=== PATIENT | female | born 1995 | race American Indian/Alaskan Native ===

== ENCOUNTER 2017-03-29 15:51 | Emergency (ER) | payer SELFPAY ==
[2017-03-29 17:30] LABS: Bilirubin,Urine NEG (Negative); Blood,Urine NEG (Negative); Ketones,Urine TR mg/dL (Negative); Leukocyte Esterase,Urine SM (Negative); Mucus,Urine 3+ /HPF; Nitrite,Urine NEG (Negative)
--- NOTE | 2017-03-29 18:09 | Emergency Department Report ---
ED Abdominal Pain HPI - General Chief Complaint: Abdominal Pain Stated Complaint: ABD PAIN Time Seen by Provider: 03/29/17 17:26 Source: patient, family Mode of arrival: Ambulatory Limitations: No Limitations - History of Present Illness Initial Comments: The patient here reported and abdominal pain lower abdomen and vaginal pain 2 weeks. She reports that she has white vaginal discharge. Denies any odor. Denies any urinary burning in frequency or urgency. Denies any back pain. Denies any nausea or vomiting. Pain is located pelvic area and she said it's cramping and 3/10 and it comes and goes. She also reports that she had a positive test and wants to know if she is . Denies any vaginal bleeding. Patient has no medical problems. She says she is not concerned about STDs. She states she had her last menstrual cycle 02/24/2017 and it only came forward to light. Complaint: abdominal pain Onset/Timin -: week(s) Location: LLQ (pelvic area) Radiation: none Migration to: no migration Severity: mild Severity scale (0 -10): 3 Quality: cramping Consistency: intermittent Improves With: nothing Worsens With: nothing Context: other (patient says she is possibly ) Associated Symptoms: other (vaginal discharge). denies: denies other symptoms, nausea, vomiting, diarrhea, fever, chills, constipation, dysuria, hematemesis, hematochezia, melena, hematuria, anorexia, syncope Treatments Prior to Arrival: other (none) - Related Data LMP Date: 02/24/17 (2 days) Previous Rx's Medication Instructions Recorded Last Taken Type Nitrofurantoin [place]/M-Cryst 100 mg PO Q12HR #14 capsule 03/29/17 Unknown Rx [Macrobid CAP] Vit-Fe Fumar-FA [ 1 tab PO QDAY #30 tablet 03/29/17 Unknown Rx Vitamin] Allergies Allergy/AdvReac Type Severity Reaction Status Date / Time No Known Allergies Allergy Unverified 03/29/17 16:02 ED Review of Systems ROS: Stated complaint: ABD PAIN Other details as noted in HPI Comment: All other systems reviewed and negative Constitutional: denies: chills, fever Respiratory: no symptoms reported Cardiovascular: denies: chest pain, palpitations, edema, syncope Gastrointestinal: abdominal pain. denies: nausea, vomiting, diarrhea, hematemesis, melena, hematochezia Genitourinary: discharge, abnormal menses, dyspareunia, other (possible ). denies: urgency, dysuria, frequency, hematuria Musculoskeletal: denies: back pain, joint swelling, arthralgia, myalgia Skin: denies: rash Neurological: denies: headache, weakness, numbness, paresthesias, confusion, abnormal gait, vertigo ED Past Medical Hx - Past Medical History Previous Medical History?: No - Surgical History Past Surgical History?: No - Family History Family history: no significant - Social History Smoking Status: Never Smoker Substance Use Type: None - Medications Home Medications: Home Medications Medication Instructions Recorded Confirmed Last Taken Type Nitrofurantoin [place]/M-Cryst 100 mg PO Q12HR #14 capsule 03/29/17 Unknown Rx [Macrobid CAP] Vit-Fe Fumar-FA [ 1 tab PO QDAY #30 tablet 03/29/17 Unknown Rx Vitamin] ED Physical Exam - General Limitations: No Limitations General appearance: alert, in no apparent distress - Head Head exam: Present: atraumatic, normocephalic, normal inspection - Eye Eye exam: Present: normal appearance, PERRL, EOMI. Absent: scleral icterus, conjunctival injection Pupils: Present: normal accommodation - ENT ENT exam: Present: normal exam, normal orophraynx, mucous membranes moist, TM's normal bilaterally, normal external ear exam - Neck Neck exam: Present: normal inspection, full ROM. Absent: tenderness, meningismus, lymphadenopathy - Respiratory Respiratory exam: Present: normal lung sounds bilaterally. Absent: respiratory distress, chest wall tenderness - Cardiovascular Cardiovascular Exam: Present: regular rate, normal rhythm, normal heart sounds - GI/Abdominal GI/Abdominal exam: Present: soft, normal bowel sounds. Absent: distended, tenderness, guarding, rebound, rigid, organomegaly, mass, bruit, pulsatile mass , hernia - External exam: Present: normal external exam. Absent: erythema, swelling, lesions, lacerations, ecchymosis, bleeding Speculum exam: Present: vaginal discharge, cervical discharge. Absent: erythema , vaginal bleeding, foreign body, tissue, laceration Bi-manual exam: Present: normal bi-manual exam. Absent: cervical motion tendernes, adnexal tenderness, adnexal mass, uterine enlargement, uterine tenderness - Expanded Exam Expanded Female exam: Absent: vaginal laceration, tissue present in vagina, herpetic lesions, vulvar erythema, vulvar tenderness, foreign body External exam: Present: normal Amniotic fluid: Present: none Speculum exam: Present: cervical OS closed, vaginal discharge. Absent: vaginal bleeding - Extremities Exam Extremities exam: Present: normal inspection, full ROM, normal capillary refill. Absent: tenderness, pedal edema, joint swelling, calf tenderness - Back Exam Back exam: Present: normal inspection, full ROM. Absent: tenderness, CVA tenderness (R), CVA tenderness (L), muscle spasm, paraspinal tenderness, vertebral tenderness - Neurological Exam Neurological exam: Present: alert, oriented X3, normal gait, reflexes normal. Absent: motor sensory deficit - Psychiatric Psychiatric exam: Present: normal affect, normal mood - Skin Skin exam: Present: warm, dry, intact, normal color. Absent: rash ED Course Vital Signs 03/29/17 15:57 Temperature 98.2 F Pulse Rate 86 Respiratory 14 Rate Blood Pressure 110/71 O2 Sat by Pulse 100 Oximetry - Reevaluation(s) Reevaluation #1: 03/29/17 20:45 Patient throughout ED stay. She is able to tolerate oral liquids in the emergency room without any difficulty. ED Medical Decision Making - Lab Data Result diagrams: 03/29/17 18:17 03/29/17 18:17 Lab Results 03/29/17 03/29/17 03/29/17 Range/Units 16:33 16:33 18:17 WBC 7.8 (4.5-11.0) K/mm3 RBC 4.05 (3.65-5.03) M/mm3 Hgb 11.6 (10.1-14.3) gm/dl Hct 35.6 (30.3-42.9) % MCV 88 (79-97) fl MCH 29 (28-32) pg MCHC 33 (30-34) % RDW 14.5 (13.2-15.2) % Plt Count 214 (140-440) K/mm3 Lymph % (Auto) 21.1 (13.4-35.0) % Mason % (Auto) 6.5 (0.0-7.3) % Eos % (Auto) 1.3 (0.0-4.3) % Baso % (Auto) 0.5 (0.0-1.8) % Lymph # 1.7 (1.2-5.4) K/mm3 Mason # 0.5 (0.0-0.8) K/mm3 Eos # 0.1 (0.0-0.4) K/mm3 Baso # 0.0 (0.0-0.1) K/mm3 Seg Neutrophils % 70.6 H (40.0-70.0) % Seg Neutrophils # 5.5 (1.8-7.7) K/mm3 Sodium (137-145) mmol/L Potassium (3.6-5.0) mmol/L Chloride (98-107) mmol/L Carbon Dioxide (22-30) mmol/L Anion Gap mmol/L BUN (7-17) mg/dL Creatinine (0.7-1.2) mg/dL Estimated GFR ml/min BUN/Creatinine Ratio % Glucose (65-100) mg/dL Calcium (8.4-10.2) mg/dL Total Bilirubin (0.1-1.2) mg/dL AST (5-40) units/L ALT (7-56) units/L Alkaline Phosphatase (35-129) units/L Total Protein (6.3-8.2) g/dL Albumin (3.9-5) g/dL Albumin/Globulin Ratio % Lipase (13-60) units/L HCG, Quant (0-4) mIU/mL Urine Color Yellow (Yellow) Urine Turbidity Clear (Clear) Urine pH 5.0 (5.0-7.0) Ur Specific [place] 1.028 (1.003-1.030) Urine Protein 30 mg/dl (Negative) mg/dL Urine Glucose (UA) Neg (Negative) mg/dL Urine Ketones Tr (Negative) mg/dL Urine Blood Neg (Negative) Urine Nitrite Neg (Negative) Urine Bilirubin Neg (Negative) Urine Urobilinogen 4.0 (<2.0) mg/dL Ur Leukocyte Esterase Sm (Negative) Urine WBC (Auto) 17.0 H (0.0-6.0) /HPF Urine RBC (Auto) 5.0 (0.0-6.0) /HPF U Epithel Cells (Auto) 5.0 (0-13.0) /HPF Urine Mucus 3+ /HPF Urine HCG, Qual Positive A (Negative) 03/29/17 03/29/17 Range/Units 18:17 18:17 WBC (4.5-11.0) K/mm3 RBC (3.65-5.03) M/mm3 Hgb (10.1-14.3) gm/dl Hct (30.3-42.9) % MCV (79-97) fl MCH (28-32) pg MCHC (30-34) % RDW (13.2-15.2) % Plt Count (140-440) K/mm3 Lymph % (Auto) (13.4-35.0) % Mason % (Auto) (0.0-7.3) % Eos % (Auto) (0.0-4.3) % Baso % (Auto) (0.0-1.8) % Lymph # (1.2-5.4) K/mm3 Mason # (0.0-0.8) K/mm3 Eos # (0.0-0.4) K/mm3 Baso # (0.0-0.1) K/mm3 Seg Neutrophils % (40.0-70.0) % Seg Neutrophils # (1.8-7.7) K/mm3 Sodium 139 (137-145) mmol/L Potassium 3.8 (3.6-5.0) mmol/L Chloride 102.7 (98-107) mmol/L Carbon Dioxide 23 (22-30) mmol/L Anion Gap 17 mmol/L BUN 9 (7-17) mg/dL Creatinine 0.7 (0.7-1.2) mg/dL Estimated GFR > 60 ml/min BUN/Creatinine Ratio 12.85 % Glucose 85 (65-100) mg/dL Calcium 8.8 (8.4-10.2) mg/dL Total Bilirubin 0.60 (0.1-1.2) mg/dL AST 16 (5-40) units/L ALT 15 (7-56) units/L Alkaline Phosphatase 53 (35-129) units/L Total Protein 7.0 (6.3-8.2) g/dL Albumin 4.0 (3.9-5) g/dL Albumin/Globulin Ratio 1.3 % Lipase 36 (13-60) units/L HCG, Quant 458.2 H (0-4) mIU/mL Urine Color (Yellow) Urine Turbidity (Clear) Urine pH (5.0-7.0) Ur Specific [place] (1.003-1.030) Urine Protein (Negative) mg/dL Urine Glucose (UA) (Negative) mg/dL Urine Ketones (Negative) mg/dL Urine Blood (Negative) Urine Nitrite (Negative) Urine Bilirubin (Negative) Urine Urobilinogen (<2.0) mg/dL Ur Leukocyte Esterase (Negative) Urine WBC (Auto) (0.0-6.0) /HPF Urine RBC (Auto) (0.0-6.0) /HPF U Epithel Cells (Auto) (0-13.0) /HPF Urine Mucus /HPF Urine HCG, Qual (Negative) Wet Prep revealed no trichomonads, no cells or no. CHL pending Urine culture pending - Radiology Data Radiology results: report reviewed Ultrasound shows no intrauterine gestation identified. Could affect her gestation. Patient quantitative hCG is 458 weeks ago approximately 3 weeks gestation. Occult ectopic cannot be excluded. Continue follow-up recommended. 1.8 cm ovarian cyst on the right and left ovaries normal. No ovarian mass noted. - Medical Decision Making ED course: She is here complaining of lower abdominal cramping on and off for 2 weeks. That she had a positive home test and wants to find out if she is . Also complaining of right vaginal discharge without any odor. Lab work drawn and within normal limits except urinalysis shows increased white blood cell and positive, small amount of protein and trace ketone. Patient tolerating oral liquids in the emergency room without any difficulties. Her ultrasound did not show any intrauterine gestation and her quantitative hCG at 458.2. It is recommended the patient needs to follow up because ectopic cannot be excluded. Patient in therefore unable to see anything on ultrasound. I discussed all results with patient and informed her that she will need to follow-up in the emergency room in 48 hours for repeat hormone test. I explained to her the reason why and she voiced understanding. I also explained to her that she had a small amount of protein in her urine and she said any follow-up to repeat her urinalysis as she is and this could be a problem. She had also a trace ketone which show she is mildly dehydrated and she was able to tolerate oral fluids in the emergency room without any difficulties. Patient with threatened miscarriage, pelvic pain, ketonuria, proteinuria and urinary tract infection. I discussed with patient that she needs to schedule appointment with outpatient RESPIRATORY CARE TECHNICIAN for follow-up care and start taking vitamins. Discussed with her that she can go to [facility] has OB service and she can play on a sliding scale based on her income. Critical care attestation.: If time is entered above; I have spent that time in minutes in the direct care of this critically ill patient, excluding procedure time. ED Disposition Clinical Impression: Threatened miscarriage in early , Ovarian cyst, left, Dehydration, mild, Acute cystitis during in first trimester Abdominal pain during Qualifiers: Trimester: first trimester Qualified Code(s): O26.891 - Other specified related conditions, first trimester; R10.9 - Unspecified abdominal pain Protein in urine Qualifiers: Proteinuria type: gestational Trimester: first trimester Qualified Code(s): O12.11 - Gestational proteinuria, first trimester Vaginal discharge during Qualifiers: Trimester: first trimester Qualified Code(s): O26.891 - Other specified related conditions, first trimester; N89.8 - Other specified noninflammatory disorders of vagina Disposition: DC-01 TO HOME OR SELFCARE Is pt being admited?: No Does the pt Need Aspirin: No Condition: Stable Instructions: Abdominal Pain (ED), Abdominal Pain in (ED), Threatened Miscarriage (ED), Dehydration (ED), (ED), Urinary Tract Infection in Women (ED) Additional Instructions: Please increase her fluid intake to 2 -3 liters of fluid /day as your urine shows mild dehydration Take antibiotic as prescribed Follow up with [facility] as instructed Please return to the emergency room in 48 hours for repeat hormone test He says that you have some protein in urine and you will need to be monitored. Prescriptions: Nitrofurantoin [place]/M-Cryst [Macrobid CAP] 100 mg PO Q12HR #14 capsule Vit-Fe Fumar-FA [ Vitamin] 1 tab PO QDAY #30 tablet Referrals: [facility] [Outside] - 3-5 Days PILO DAHL MD [Staff Physician] - 3-5 Days RETURN TO, ER [Other] - 03/31/17 (Repeat hormone tests.) Forms: Work/School Release Form(ED), Accompanied Note
[2017-03-29 18:33] LABS: Basophils % (Auto) 0.5 % (0.0-1.8); Eosinophils % (Auto) 1.3 % (0.0-4.3); Hematocrit 35.6 % (30.3-42.9); Hemoglobin 11.6 gm/dl (10.1-14.3); Mean Corpuscular HGB Conc 33 % (30-34); Mean Corpuscular Hemoglobin 29 pg (28-32); Mean Corpuscular Volume 88 fl (79-97); Platelet Count 214 K/mm3 (140-440); Red Blood Count 4.05 M/mm3 (3.65-5.03); Red Cell Distribution Width 14.5 % (13.2-15.2); White Blood Count 7.8 K/mm3 (4.5-11.0)
[2017-03-29 18:50] LABS: Alanine Aminotransferase 15 units/L (7-56); Albumin/Globulin Ratio 1.3 %; Alkaline Phosphatase 53 units/L (35-129); BUN/Creatinine Ratio 12.85; Blood Urea Nitrogen 9 mg/dL (7-17); Calcium 8.8 mg/dL (8.4-10.2); Carbon Dioxide 23 mmol/L (22-30); Glucose 85 mg/dL (65-100); Lipase 36 units/L (13-60)
[2017-03-29 19:01] LABS: Anion Gap 17 mmol/L; Chloride 102.7 mmol/L (98-107); Potassium 3.8 mmol/L (3.6-5.0); Sodium 139 mmol/L (137-145)
--- NOTE | 2017-03-29 19:30 | Ultrasound Report ---
FINAL REPORT EXAM: US OB TRANSVAGINAL HISTORY: pelvic pain in TECHNIQUE: Ultrasound obstetrical transvaginal and transabdominal with color Doppler evaluation PRIORS: None. FINDINGS: Uterus is 8.2 x 4.6 x 4.6 centimeters. Endometrial stripe is 1.8 centimeters. No evidence for gestational sac or products of conception seen within the uterus right ovary is 3.3 x 2.6 x 2.6 centimeters. A 1.8 centimeter cyst is noted left ovary is 2.6 x 1.8 x 1.3 centimeters. No abnormal mass or cyst identified. No abnormal adnexal mass seen. IMPRESSION: No intrauterine gestation identified. Could reflect very early gestation. Occult ectopic cannot be excluded. Continued followup recommended
--- NOTE | 2017-03-29 19:34 | Ultrasound Report ---
FINAL REPORT EXAM: US OB \T\lt; = 14 WEEKS FETUS HISTORY: pelvic pain in TECHNIQUE: Ultrasound obstetrical transabdominal PRIORS: None. FINDINGS: The uterus measures 8.2 x 4.6 x 4.6 centimeters. No intrauterine gestational gestational sac identified The ovaries are normal in size and echogenicity. A 1.8 centimeter right ovarian cyst is noted. No adnexal mass seen. IMPRESSION: No intrauterine gestation identified. Continued followup recommended.
[2017-03-29 21:25] VITALS: BP 111/75
== END 2017-03-29 21:28 | disposition home or self-care (01) ==
LOC: ED 15:51
DX: O20.0 Threatened abortion (principal); O23.11 Infections of bladder in pregnancy, first trimester; O34.81 Maternal care for other abnormalities of pelvic organs, first trimester; N83.201 Unspecified ovarian cyst, right side; Z3A.01 Less than 8 weeks gestation of pregnancy
CPT/HCPCS: 36415; 76801; 76817; 80053; 81001; 81025; 83690; 84702; 85025; 87086; 87210; 87591; 99284

== ENCOUNTER 2017-03-31 10:28 | Emergency (ER) | payer SELFPAY ==
[2017-03-31 11:15] VITALS: BP 118/70
--- NOTE | 2017-03-31 11:15 | Emergency Department Report ---
Chief Complaint: Recheck/Abnormal Lab/Rx Stated Complaint: FOLLOW UP Time Seen by Provider: 03/31/17 11:12 - HPI History of Present Illness: PT states she was seen 2 days ago and she had + test. PT states she was told to come back to the ED today for repeat lab work. - ROS Review of Systems: - bleeding - dysuria + intermittent abd cramps - Exam Physical Exam: abd soft and non tender MSE screening note: Focused history and physical exam performed. Due to findings the following was ordered: lab ED Disposition for MSE Condition: Stable
--- NOTE | 2017-03-31 12:51 | Emergency Department Report ---
Entered by KINJAL SWANSON, acting as scribe for SANDEEP RIVERA PA. ED Female HPI - General Chief complaint: Urogenital-Female Stated complaint: FOLLOW UP Time Seen by Provider: 03/31/17 11:12 Source: patient Mode of arrival: Ambulatory Limitations: No Limitations - History of Present Illness Initial comments: 21 y/o female presents due to follow up from 2 days ago wanting blood work to check status. She is asymptomatic and reports that US was done 2 days ago and came back unremarkable. She was told to follow up today. LMP 02/26/17. Complaint: other (pt wants blood work) -: days(s) (2) Radiation: non-radiating Severity: mild Severity scale (0 -10): 3 Quality: cramping Consistency: constant Improves with: none Worsens with: none Are you Now?: Yes ( ) Last Menstrual Period: 02/26/18 EDC: 12/03/18 Associated Symptoms: denies other symptoms - Related Data Sexually active: Yes Previous Rx's Medication Instructions Recorded Last Taken Type Nitrofurantoin [place]/M-Cryst 100 mg PO Q12HR #14 capsule 03/29/17 Unknown Rx [Macrobid CAP] Vit-Fe Fumar-FA [ 1 tab PO QDAY #30 tablet 03/29/17 Unknown Rx Vitamin] Allergies Allergy/AdvReac Type Severity Reaction Status Date / Time No Known Allergies Allergy Unverified 03/29/17 16:02 ED Review of Systems Comment: All other systems reviewed and negative Constitutional: denies: chills, fever Respiratory: denies: cough, shortness of breath Cardiovascular: denies: chest pain Gastrointestinal: denies: abdominal pain, nausea, vomiting Neurological: denies: headache, weakness, numbness ED Past Medical Hx - Past Medical History Previous Medical History?: No - Surgical History Past Surgical History?: No - Social History Smoking Status: Never Smoker Substance Use Type: None - Medications Home Medications: Home Medications Medication Instructions Recorded Confirmed Last Taken Type Nitrofurantoin [place]/M-Cryst 100 mg PO Q12HR #14 capsule 03/29/17 Unknown Rx [Macrobid CAP] Vit-Fe Fumar-FA [ 1 tab PO QDAY #30 tablet 03/29/17 Unknown Rx Vitamin] ED Physical Exam - General Limitations: No Limitations - Other Other exam information: GENERAL: Patient is alert and oriented x 3. No apparent distress, normal gait, atraumatic. HEAD: Head is normocephalic and atraumatic. LUNGS: Symmetrical with respiration, no wheezing, no rales, no crackles, CTAB HEART: Regular rate and rhythm with normal S1/S2 present. No murmurs, rubs, or gallops. ABDOMEN: Soft, nondistended. Nontender to palpation on all quadrants. No organomegaly was noted. Positive bowel sounds. No CVA tenderness. SKIN: Warm and dry. No lesions, ulceration or induration present. ED Course Vital Signs 03/31/17 11:12 Temperature 98.4 F Pulse Rate 77 Respiratory 18 Rate Blood Pressure 118/70 O2 Sat by Pulse 100 Oximetry ED Medical Decision Making - Medical Decision Making 21 y/o female presents with follow up for HcG levels ED course: HCG levels collected today. HCG level is 1700+ Tucker quant level as trip in the past 2 days. this is consistent with iup Discussed findings with patient. Discussed the patient to follow up with OB as referred. Discussed continued daily needle vitamins. Vital signs stable patient is in no acute or respiratory distress. Discussed findings with patient about diagnoses. Discussed treatment in ED with patient Discussed with patient to follow up with PCP as referred, and to return to the ED if symptoms return or worsen. Patient states understanding and will follow instructions. Pt verbally states understanding and will comply to follow up. ED Disposition Clinical Impression: Qualifiers: Weeks of gestation: less than 8 weeks Qualified Code(s): Z3A.01 - Less than 8 weeks gestation of Disposition: DC-01 TO HOME OR SELFCARE Is pt being admited?: No Does the pt Need Aspirin: No Condition: Stable Instructions: Morning Sickness (ED), (ED) Additional Instructions: Continue taking vitamins as discussed. Follow-up with OB doctor. If any new symptoms return to ED Referrals: PRIMARY CARE, [Primary Care Provider] - 3-5 Days ELGIN BOGGS MD [Staff Physician] - 3-5 Days MARTINE BOGGS MD [Referring] - 3-5 Days STAN BOGGS MD [Staff Physician] - 3-5 Days ALEX BOGGS MD [Referring] - 3-5 Days Forms: Work/School Release Form(ED) Time of Disposition: 12:58 This documentation as recorded by the SKY ku RYAN,accurately reflects the service I personally performed and the decisions made by ,SANDEEP RIVERA PA.
== END 2017-03-31 13:16 | disposition home or self-care (01) ==
LOC: ED 10:28
DX: Z32.01 Encounter for pregnancy test, result positive (principal); Z3A.01 Less than 8 weeks gestation of pregnancy
CPT/HCPCS: 36415; 84702; 86900; 86901; 99283

== ENCOUNTER 2017-04-11 05:25 | Emergency (ER) | payer MEDICAID ==
[2017-04-11 05:48] VITALS: BP 108/61
[2017-04-11] MEDS ORDERED: TYLENOL PO ONE (05:55)
[2017-04-11 06:29] LABS: Bilirubin,Urine NEG (Negative); Blood,Urine NEG (Negative); Ketones,Urine NEG (Negative); Leukocyte Esterase,Urine MOD (Negative); Mucus,Urine FEW /HPF; Nitrite,Urine NEG (Negative); Protein,Urine <15 mg/dL mg/dL (Negative); Urobilinogen,Urine < 2.0 mg/dL (<2.0)
[2017-04-11 08:05] LABS: Basophils % (Auto) 0.4 % (0.0-1.8); Eosinophils % (Auto) 1.2 % (0.0-4.3); Hematocrit 37.4 % (30.3-42.9); Hemoglobin 12.2 gm/dl (10.1-14.3); Mean Corpuscular HGB Conc 33 % (30-34); Mean Corpuscular Hemoglobin 29 pg (28-32); Mean Corpuscular Volume 89 fl (79-97); Platelet Count 210 K/mm3 (140-440); Red Blood Count 4.22 M/mm3 (3.65-5.03); Red Cell Distribution Width 15.2 % (13.2-15.2); White Blood Count 10.1 K/mm3 (4.5-11.0)
--- NOTE | 2017-04-11 08:49 | Ultrasound Report ---
FINAL REPORT PROCEDURE: US OB \T\lt; = 14 WEEKS FETUS TECHNIQUE: Real-time transabdominal sonography of the uterus, placenta, amniotic fluid, adnexa, and fetus was performed with image documentation. Measurements were obtained to determine age/size. M-mode Doppler was used to document heartbeat. CPT 45293 HISTORY: ABDOMINAL PAIN COMPARISON: 03/29/2017 FINDINGS: CRL: 3 mm, which corresponds to a gestational age of: 5 weeks, 6 days. Yolk Sac: Present Embryonic Cardiac Activity: Heart rate 99 beats per minute Gestational Sac: Normal. Amniotic fluid: Normal. Cervix: Normal. Right Ovary: 4.5 x 2.7 centimeters with normal flow. Complex mass lesion right adnexa measure 1.8 by 1.8 centimeters with central cystic structure and with capsular thickening in the 4-5 millimeter range. There is prominent peripheral color Doppler flow. With possible ring of fire appearance. This could reflect a concomitant ectopic and is the diagnosis of exclusion and warrants close followup. More solid appearing ovoid lesion in the right adnexa also seen measuring 1.3 x 1.2 centimeters Left Ovary: 3.1 x 1.8 centimeters with normal flow Estimated delivery date: 12/06/2017 Uterus and adnexa: Uterus 9.5 centimeters Other: Minimal free fluid. IMPRESSION: Single live intrauterine gestation at approximately 5 weeks 6 day. EDC by US 12/06/2017. Minimal free fluid. Indeterminate complex cystic mass right ovary indeterminate to exclude concomitant ectopic . Close followup is advised.
--- NOTE | 2017-04-11 08:51 | Ultrasound Report ---
FINAL REPORT PROCEDURE: US OB TRANSVAGINAL TECHNIQUE: Real-time transvaginal sonography of the uterus, placenta, amniotic fluid, adnexa, and fetus was performed with image documentation. Measurements were obtained to determine age/size. M-mode Doppler was used to document heartbeat. CPT 13848 HISTORY: ABDOMINAL PAIN COMPARISON: 03/29/2017 FINDINGS: CRL: 3mm, which corresponds to a gestational age of: 5weeks, 6 days. Yolk Sac: Normal. Embryonic Cardiac Activity: 9 beats per minute Gestational Sac: Normal. Right Ovary: 4.5 x 2.7 centimeters with normal flow. There is a solid ovoid mass in the right ovary measures 1.3 centimeters and appears benign and nonspecific. There is a complex cystic mass measuring 1.8 x 1.8 centimeters with prominent peripheral color Doppler flow with ring of fire appearance. This may represent concomitant ectopic or corpus luteum cyst of . Concomitant ectopic is the diagnosis of exclusion and close followup and further workup is advised. Left Ovary: 3.1 x 1.8 centimeters with normal flow Estimated delivery date: 12/06/2017 Comment: Close followup advised Minimal free fluid IMPRESSION: 1. Single living intrauterine gestation at approximately 5 weeks 6 days 2. EDC by US 12/06/2017 3 minimal free fluid. Indeterminate complex cystic mass right adnexa. Followup is advised. Details above..
--- NOTE | 2017-04-11 10:53 | Emergency Department Report ---
ED Abdominal Pain HPI - General Chief Complaint: Abdominal Pain Stated Complaint: ABD PAIN Time Seen by Provider: 04/11/17 10:33 Source: patient Mode of arrival: Ambulatory Limitations: No Limitations - History of Present Illness Initial Comments: Patient is a 21-year-old female here with complaint of lower abdominal pain that started last evening. Her last menstrual period was February 24. She knows that she is . She has a OB appointment scheduled on the . Her pain is currently resolved in the emergency department. She describes it as an ache. It does not radiate. No fevers, chills, no vaginal bleeding or vaginal discharge. MD Complaint: abdominal pain -: Gradual, During the night Location: diffuse Radiation: none Migration to: no migration Severity: mild Severity scale (0 -10): 8 Quality: aching Improves With: other Worsens With: nothing Associated Symptoms: denies other symptoms - Related Data LMP Date: 02/24/17 Previous Rx's Medication Instructions Recorded Last Taken Type Nitrofurantoin [place]/M-Cryst 100 mg PO Q12HR #14 capsule 03/29/17 Unknown Rx [Macrobid CAP] Vit-Fe Fumar-FA [ 1 tab PO QDAY #30 tablet 03/29/17 Unknown Rx Vitamin] Allergies Allergy/AdvReac Type Severity Reaction Status Date / Time No Known Allergies Allergy Unverified 03/29/17 16:02 ED Review of Systems ROS: Stated complaint: ABD PAIN Other details as noted in HPI Constitutional: denies: chills, fever Eyes: denies: eye pain, eye discharge, vision change ENT: denies: ear pain, throat pain Respiratory: denies: cough, shortness of breath, wheezing Cardiovascular: denies: chest pain, palpitations Endocrine: no symptoms reported Gastrointestinal: denies: abdominal pain, nausea, diarrhea Genitourinary: denies: urgency, dysuria, discharge Musculoskeletal: denies: back pain, joint swelling, arthralgia Skin: denies: rash, lesions Neurological: denies: headache, weakness, paresthesias Psychiatric: denies: anxiety, depression Hematological/Lymphatic: denies: easy bleeding, easy bruising ED Past Medical Hx - Past Medical History Previous Medical History?: No - Surgical History Past Surgical History?: No - Social History Smoking Status: Never Smoker Substance Use Type: None - Medications Home Medications: Home Medications Medication Instructions Recorded Confirmed Last Taken Type Nitrofurantoin [place]/M-Cryst 100 mg PO Q12HR #14 capsule 03/29/17 Unknown Rx [Macrobid CAP] Vit-Fe Fumar-FA [ 1 tab PO QDAY #30 tablet 03/29/17 Unknown Rx Vitamin] ED Physical Exam - General Limitations: No Limitations General appearance: alert, in no apparent distress - Head Head exam: Present: atraumatic, normocephalic - Eye Eye exam: Present: normal appearance - ENT ENT exam: Present: mucous membranes moist - Neck Neck exam: Present: normal inspection - Respiratory Respiratory exam: Present: normal lung sounds bilaterally. Absent: respiratory distress - Cardiovascular Cardiovascular Exam: Present: regular rate, normal rhythm. Absent: systolic murmur, diastolic murmur, rubs, gallop - GI/Abdominal GI/Abdominal exam: Present: soft, normal bowel sounds - Extremities Exam Extremities exam: Present: normal inspection - Back Exam Back exam: Present: normal inspection - Neurological Exam Neurological exam: Present: alert, oriented X3 - Psychiatric Psychiatric exam: Present: normal affect, normal mood - Skin Skin exam: Present: warm, dry, intact, normal color. Absent: rash ED Course Vital Signs 04/11/17 05:42 Temperature 98.1 F Pulse Rate 83 Respiratory 12 Rate Blood Pressure 108/61 Blood Pressure 108/61 [Left] O2 Sat by Pulse 100 Oximetry ED Medical Decision Making - Lab Data Result diagrams: 04/11/17 07:36 Laboratory Results - last 24 hr 04/11/17 04/11/17 04/11/17 05:54 07:36 07:36 WBC 10.1 RBC 4.22 Hgb 12.2 Hct 37.4 MCV 89 MCH 29 MCHC 33 RDW 15.2 Plt Count 210 Lymph % (Auto) 13.7 Carroll % (Auto) 6.0 Eos % (Auto) 1.2 Baso % (Auto) 0.4 Lymph # 1.4 Carroll # 0.6 Eos # 0.1 Baso # 0.0 Seg Neutrophils % 78.7 H Seg Neutrophils # 8.0 H HCG, Quant 33352 H Urine Color Yellow Urine Turbidity Slightly-cloudy Urine pH 7.0 Ur Specific Tamiment 1.015 Urine Protein <15 mg/dl Urine Glucose (UA) Neg Urine Ketones Neg Urine Blood Neg Urine Nitrite Neg Urine Bilirubin Neg Urine Urobilinogen < 2.0 Ur Leukocyte Esterase Mod Urine WBC (Auto) 9.0 H Urine RBC (Auto) 2.0 U Epithel Cells (Auto) 12.0 Urine Mucus Few - Medical Decision Making Patient is a 21-year-old female who presents with complaint of lower abdominal pain 1 day. This pain is currently resolved. She has a beta hCG of 57,000 and an ultrasound that shows an IUP at approximately 5 weeks 6 days. In addition to this she also has a questionable cyst versus ectopic at her left ovary. She is supposed to follow-up with OB on the . Discussed case with Dr. Irby from OB agrees with plan to repeat ultrasound in 48 hours. Patient will need to follow up in the ER given that [facility] office is closed on Thursday. Strict precautions given for ectopic . Critical care attestation.: If time is entered above; I have spent that time in minutes in the direct care of this critically ill patient, excluding procedure time. ED Disposition Clinical Impression: Abdominal pain affecting Disposition: DC-01 TO HOME OR SELFCARE Is pt being admited?: No Does the pt Need Aspirin: No Condition: Stable Instructions: Abdominal Pain (ED), Ectopic (ED) Additional Instructions: Please return to the emergency department in 48 hours for repeat ultrasound and blood work Referrals: PRIMARY MD COLUMBA [Primary Care Provider] - 3-5 Days ISABEL IRBY MD [Staff Physician] - 2-3 Days Time of Disposition: 11:29
== END 2017-04-11 11:45 | disposition home or self-care (01) ==
LOC: ED 05:25
DX: O26.891 Other specified pregnancy related conditions, first trimester (principal); R10.30 Lower abdominal pain, unspecified; Z3A.01 Less than 8 weeks gestation of pregnancy
CPT/HCPCS: 36415; 76801; 76817; 81001; 84702; 85025

== ENCOUNTER 2019-04-22 07:20 | Emergency (ER) | payer MEDICAID, OTHER ==
[2019-04-22 07:23] VITALS: BP 112/43
--- NOTE | 2019-04-22 08:46 | Emergency Department Report ---
ED Female HPI - General Chief complaint: Urogenital-Female Stated complaint: VAGINAL DISCHARGE Time Seen by Provider: 04/22/19 08:42 Source: patient Mode of arrival: Ambulatory Limitations: No Limitations - History of Present Illness Initial comments: Ms. Veloz is a healthy 23-year-old female who has had several weeks of yellow thin vaginal discharge. She denies fever. She denies pelvic or abdominal pain. No recent exposure to STD. MD Complaint: vaginal discharge -: Gradual, week(s) (3) Severity: mild Severity scale (0 -10): 0 Consistency: constant Improves with: none Worsens with: none Are you Now?: No Associated Symptoms: denies other symptoms - Related Data Previous Rx's Medication Instructions Recorded Last Taken Type Nitrofurantoin [place]/M-Cryst 100 mg PO Q12HR #14 capsule 03/29/17 Unknown Rx [Macrobid CAP] Vit-Fe Fumar-FA [ 1 tab PO QDAY #30 tablet 03/29/17 Unknown Rx Vitamin] Fluconazole [Diflucan TAB] 150 mg PO ONCE #1 tablet 04/22/19 Unknown Rx metroNIDAZOLE [Flagyl TAB] 500 mg PO Q12HR 7 Days #14 tab 04/22/19 Unknown Rx Allergies Allergy/AdvReac Type Severity Reaction Status Date / Time No Known Allergies Allergy Verified 04/22/19 07:21 ED Review of Systems ROS: Stated complaint: VAGINAL DISCHARGE Other details as noted in HPI Comment: All other systems reviewed and negative Constitutional: denies: fever, malaise Respiratory: denies: cough ED Past Medical Hx - Past Medical History Previous Medical History?: No - Surgical History Past Surgical History?: No - Social History Smoking Status: Never Smoker - Medications Home Medications: Home Medications Medication Instructions Recorded Confirmed Last Taken Type Nitrofurantoin [place]/M-Cryst 100 mg PO Q12HR #14 capsule 03/29/17 Unknown Rx [Macrobid CAP] Vit-Fe Fumar-FA [ 1 tab PO QDAY #30 tablet 03/29/17 Unknown Rx Vitamin] Fluconazole [Diflucan TAB] 150 mg PO ONCE #1 tablet 04/22/19 Unknown Rx metroNIDAZOLE [Flagyl TAB] 500 mg PO Q12HR 7 Days #14 tab 04/22/19 Unknown Rx ED Physical Exam - General Limitations: No Limitations General appearance: alert, in no apparent distress - Head Head exam: Present: atraumatic, normocephalic - Eye Eye exam: Present: normal appearance - ENT ENT exam: Present: mucous membranes moist - Neck Neck exam: Present: normal inspection - Respiratory Respiratory exam: Absent: respiratory distress - GI/Abdominal GI/Abdominal exam: Present: soft, normal bowel sounds. Absent: distended, tenderness, guarding, rebound - Extremities Exam Extremities exam: Present: normal inspection - Back Exam Back exam: Present: normal inspection - Neurological Exam Neurological exam: Present: alert, oriented X3 - Psychiatric Psychiatric exam: Present: normal affect, normal mood - Skin Skin exam: Present: warm, dry, intact, normal color. Absent: rash ED Course Vital Signs 04/22/19 07:21 Temperature 98.2 F Pulse Rate 82 Respiratory 18 Rate Blood Pressure 112/43 O2 Sat by Pulse 98 Oximetry ED Medical Decision Making - Medical Decision Making Ms. Veloz presents with symptoms of vaginitis. We'll treat for potential vaginosis and candidiasis with fluconazole and metronidazole. If symptoms continue, I recommended STI testing at [facility]. Critical care attestation.: If time is entered above; I have spent that time in minutes in the direct care of this critically ill patient, excluding procedure time. ED Disposition Clinical Impression: Vaginitis Disposition: DC-01 TO HOME OR SELFCARE Is pt being admited?: No Does the pt Need Aspirin: No Condition: Stable Instructions: Vaginitis (ED) Prescriptions: Fluconazole [Diflucan TAB] 150 mg PO ONCE #1 tablet metroNIDAZOLE [Flagyl TAB] 500 mg PO Q12HR 7 Days #14 tab Referrals: TIFFANY HOOPER MD [Primary Care Provider] - 3-5 Days
== END 2019-04-22 08:56 | disposition home or self-care (01) ==
LOC: ED 07:20
DX: N76.0 Acute vaginitis (principal)
CPT/HCPCS: 99282